=== PATIENT | male | born 2000 | race Caucasian/White ===

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

== ENCOUNTER → 2024-06-14 | Outpatient (CLI) | payer OTHER ==
--- NOTE | 2024-06-14 14:50 | US ---
EXAMINATION TYPE: US groin LT DATE OF EXAM: 06/14/2024 COMPARISON: NONE CLINICAL INDICATION: Male, 23 years old with history of R10.84 ABD PAIN R10.32 LLQ PAIN; Left groin p ain x 5 weeks. Pt states he does lift heavy for work and also weight lifts. TECHNIQUE: Left groin scanned FINDINGS/IMPRESSION: No obvious abnormality seen on ultrasound. No hernia identified. No lymphadenop athy visualized. [facility], , 06/14/2024 2:48 PM
--- NOTE | 2024-06-14 14:53 | US ---
EXAMINATION TYPE: US abdomen complete DATE OF EXAM: 06/14/2024 COMPARISON: NONE CLINICAL INDICATION: Male, 23 years old with history of R10.84 ABD PAIN R10.32 LLQ PAIN; Abdominal di scomfort for a couple weeks TECHNIQUE: Grayscale and color Doppler imaging of the abdomen was performed. FINDINGS: EXAM MEASUREMENTS: Liver Length: 15.5 cm Gallbladder Wall: 0.14 cm CBD: 0.49 cm, color Doppler imaging was utilized to isolate the common bile duct for measurement. Spleen: 10.2 cm Right Kidney: 10.1 x 6.9 x 4.7 cm Left Kidney: 11.2 x 5.3 x 5.1 cm [employer] NOTES: slightly limited due to bowel gas Pancreas: wnl Liver: wnl, no dilated ducts, masses or cysts. Gallbladder: Floating debris seen inside Evidence for sonographic Prather's sign: No CBD: wnl Spleen: wnl Right Kidney: wnl, No hydronephrosis, calculi or masses seen Left Kidney: wnl, No hydronephrosis, calculi or masses seen Upper IVC: wnl Abd Aorta: wnl The liver is homogenous. The intrahepatic portion of the IVC and proximal abdominal aorta are within normal limits. There is no evidence of cholelithiasis. Sludge identified within the gallbladder. Co mmon bile duct is unremarkable. The visualized portions of the pancreas are homogenous. The spleen is unremarkable. Kidneys are symmetric and free of hydronephrosis. No renal lesions are seen. IMPRESSION: 1. No ultrasound evidence for acute process. 2. Gallbladder sludge without evidence for acute cholecystitis. [facility], , 06/14/2024 2:51 PM
== END | disposition home or self-care (01) ==
LOC: RADUSWWP 13:55
PROVIDERS: ATTEND Family Medicine
DX: K82.8 Other specified diseases of gallbladder (principal); R10.84 Generalized abdominal pain; R10.32 Left lower quadrant pain
CPT/HCPCS: 76700